=== PATIENT | female | born 1985 | race Caucasian/White ===

== ENCOUNTER → 2016-09-02 | Outpatient (CLI) | payer OTHER ==
[~2016-09-02] MED LIST: CARB15DR EACHEYE; CEFD300C2 PO; CIPR500T87 PO; CYCL1DRO EACHEYE; DOCU250C2 PO; ERGO500017 PO; KETO10TA PO; LACT1CAP24 PO; LEVO1TAB25 PO; LEVO1TAB41 PO; MINE3.5O EACHEYE; ONDA8TAB9 PO; OXYB5TAB7 PO; OXYC-223 PO; OXYC-302 PO; OXYC5TAB3 PO; PHEN-418 PO; POTA10TA31 PO; PRED20TA PO; REFRESH EYE EACHEYE; TAMS-11 PO; oxygen INH
== END | disposition home or self-care (01) ==
LOC: CFH 09:47
PROVIDERS: ATTEND Internal Medicine Critical Care Medicine
DX: J98.4 Other disorders of lung (principal)
CPT/HCPCS: 71250

== ENCOUNTER → 2016-09-08 | Outpatient (CLI) | payer OTHER ==
[~2016-09-08] MED LIST changes: -CEFD300C2 PO; +CEFD300C37 PO
== END | disposition home or self-care (01) ==
LOC: CFH 15:24
PROVIDERS: ATTEND Anesthesiology
DX: N20.0 Calculus of kidney (principal)
CPT/HCPCS: 74000

== ENCOUNTER → 2016-11-08 | Outpatient (CLI) | payer OTHER | END | disposition home or self-care (01) | LOC: CFH 15:11 | PROVIDERS: ATTEND Internal Medicine Critical Care Medicine | DX: J84.9 Interstitial pulmonary disease, unspecified (principal) | CPT/HCPCS: 71020 ==

== ENCOUNTER 2016-12-01 09:17 | Emergency (ER) | payer OTHER ==
[~2016-12-01] VITALS: Ht 165.1 cm; Wt 149.1 kg
[2016-12-01] MEDS ORDERED: MYCO250C PO (09:46)
[2016-12-01] MEDS ORDERED: OXYC-302 PO (09:46)
[2016-12-01] MEDS ORDERED: SODIUM CHLORIDE 0.9% 1,000ML IVBOLUS ONE (10:30)
[2016-12-01] MEDS ORDERED: MORPHINE SULFATE 4 MG/ML, 1ML IVPush PRN (10:30)
[2016-12-01] MEDS ORDERED: ONDANSETRON 2MG/ML, 2ML IVPush ONE (10:30)
[2016-12-01] MEDS ORDERED: SODIUM CHLORIDE FLUSH 10ML SYR IVF ONE (10:30)
[2016-12-01 10:36] LABS: BLOOD UREA NITROGEN 12 mg/dL (7-18)
[2016-12-01] MEDS ORDERED: ONDANSETRON 2MG/ML, 2ML ONE (10:42)
[2016-12-01] MEDS ORDERED: MORPHINE SULFATE 4 MG/ML, 1ML ONE (10:42)
[2016-12-01 11:01] LABS: HCG UR OBC PASS
[2016-12-01] MEDS ORDERED: KETOROLAC 30 MG/1 ML ONE (11:24)
[2016-12-01] MEDS ORDERED: POTASSIUM CHLORIDE 20 MEQ TAB.ER.PRT ONE (11:24)
[2016-12-01] MEDS ORDERED: POTASSIUM CHLORIDE 20 MEQ TAB.ER.PRT PO ONE (11:30)
[2016-12-01] MEDS ORDERED: KETOROLAC 30 MG/1 ML IVPush ONE (11:30)
[2016-12-01 12:09] VITALS: BP 119/56
== END 2016-12-01 12:12 | disposition home or self-care (01) ==
LOC: ED 09:58
DX: S39.012A Strain of muscle, fascia and tendon of lower back, initial encounter (principal); E87.6 Hypokalemia; N20.2 Calculus of kidney with calculus of ureter; G89.29 Other chronic pain; X58.XXXA Exposure to other specified factors, initial encounter; Y93.89 Activity, other specified; Y92.89 Other specified places as the place of occurrence of the external cause; Y99.8 Other external cause status
CPT/HCPCS: 36415; 74176; 80048; 81001; 81025; 82040; 85025; 85651; 87086; 96361; 96374; 96375; 99285; J1885; J2405; J7030

== ENCOUNTER 2016-12-18 11:41 | Inpatient (IN) | payer OTHER ==
[~2016-12-18] VITALS: Ht 165.1 cm; Wt 146.7 kg
[~2016-12-18 11:41] MED LIST changes: +MYCO250C PO
[2016-12-18] MEDS ORDERED: SODIUM CHLORIDE 0.9% 1,000 ML IV ONE (12:35)
[2016-12-18] MEDS ORDERED: POTA20TA91 PO (12:40)
[2016-12-18] MEDS ORDERED: NAPR500T PO (12:40)
[2016-12-18] MEDS ORDERED: HYDROmorphone 1 MG/ML, 1ML ONE ×2 (12:44→14:19)
[2016-12-18] MEDS ORDERED: MAALOX/HYOSCYAMINE/LIDOCAINE 45 ML BTL ONE (12:44)
[2016-12-18] MEDS ORDERED: PROMETHAZINE 25 MG/ML, 1ML ONE (12:44)
[2016-12-18] MEDS ORDERED: SODIUM CHLORIDE 0.9% 1,000ML IVBOLUS ONE (13:00)
[2016-12-18] MEDS ORDERED: MAALOX/HYOSCYAMINE/LIDOCAINE 45 ML BTL PO ONE (13:00)
[2016-12-18] MEDS ORDERED: SODIUM CHLORIDE FLUSH 10ML SYR IVF ONE (13:00)
[2016-12-18] MEDS ORDERED: PROMETHAZINE 25 MG/ML, 1ML IM ONE (13:00)
[2016-12-18] MEDS: HYDROmorphone 1 MG/ML, 1ML IVPush PRN ×2 (13:04→14:26)
[2016-12-18 13:21] LABS: HEMATOCRIT 37.6 % (34.6-47.8); HEMOGLOBIN 12.2 g/dL (11.7-16.4); WHITE BLOOD COUNT 10.3 x10^3/uL (3.4-10)
[2016-12-18 13:25] LABS: PATH.CAST-FLAG NOT PRESENT; SPERM-FLAG NOT PRESENT; SRC-FLAG NOT PRESENT; XTAL-FLAG NOT PRESENT; YLC-FLAG NOT PRESENT
[2016-12-18 13:33] LABS: ASPARTATE AMINO TRANSFERASE 119 U/L (15-37); BLOOD UREA NITROGEN 10 mg/dL (7-18)
[2016-12-18] MEDS ORDERED: CEFTRIAXONE PMX 1GM/50ML 50 ML IV ONE (14:00)
[2016-12-18] MEDS ORDERED: POTASSIUM CHLORIDE 20 MEQ TAB.ER.PRT PO ONE (14:00)
[2016-12-18] MEDS ORDERED: POTASSIUM CHLORIDE 20 MEQ in SODIUM CHLORIDE 0.9% 1,000 ML IV ONE (14:02)
[2016-12-18] MEDS ORDERED: POTASSIUM CHLORIDE 20 MEQ TAB.ER.PRT ONE (14:20)
[2016-12-18] MEDS: NS + 40MEQ KCL 500 ML IV SCH ×2 (14:25→16:54)
[2016-12-18] MEDS ORDERED: ENOXAPARIN 40 MG/0.4 ML SQ SCH (14:30)
[2016-12-18] MEDS ORDERED: POLYETHYLENE GLYCOL 17 GM PACKET PO PRN (14:30)
[2016-12-18] MEDS ORDERED: SODIUM CHLORIDE FLUSH 10ML SYR IVF PRN (14:30)
[2016-12-18] MEDS ORDERED: ACETAMINOPHEN 325 MG TABLET PO PRN (14:30)
[2016-12-18] MEDS ORDERED: DOCUSATE 100 MG CAPSULE PO PRN (14:30)
[2016-12-18] MEDS ORDERED: LABETALOL 5MG/ML, 20ML IVPush PRN (14:30)
[2016-12-18] MEDS ORDERED: HYDROcodone/APAP 5/325 TABLET PO PRN (14:30)
[2016-12-18] MEDS ORDERED: BISACODYL 10 MG SUPP PR PRN (14:30)
[2016-12-18] MEDS ORDERED: CEFTRIAXONE PMX 1GM/50ML 50 ML IV SCH (15:00)
[2016-12-18] MEDS ORDERED: TEMPLATE NON-FORMULARY MED. (Carboxymethylcellulose Sodium (Refresh Tears) 1 DROP) EACHEYE PRN (15:00)
[2016-12-18] MEDS ORDERED: CEFTRIAXONE PMX 1GM/50ML 50 ML ONE (15:13)
[2016-12-18 16:29] VITALS: BP 133/84
[2016-12-18] MEDS: ONDANSETRON 2MG/ML, 2ML IVPush PRN (16:54)
[2016-12-18] MEDS: OXYcodone/APAP 5/325MG TABLET PO SCH ×2 (16:54→21:43)
[2016-12-18] MEDS: NS + 40MEQ KCL 1,000 ML IV SCH (16:55)
[2016-12-18] MEDS: POTASSIUM CHLORIDE 20 MEQ TAB.ER.PRT PO SCH (17:31)
[2016-12-18] MEDS: morphine SULFATE 10 MG/ML, 1ML IVPush PRN ×2 (19:47→23:17)
[2016-12-18 20:10] VITALS: BP 119/85
[2016-12-18] MEDS: TEMPLATE NON-FORMULARY MED. (Cyclosporine (Restasis) 1 DROP) EACHEYE SCH (21:00)
[2016-12-19] MEDS: NS + 40MEQ KCL 500 ML IV SCH ×2 (01:00→04:54)
[2016-12-19 01:17] VITALS: BP 109/75
[2016-12-19] MEDS: ONDANSETRON 2MG/ML, 2ML IVPush PRN (02:19)
[2016-12-19] MEDS: morphine SULFATE 10 MG/ML, 1ML IVPush PRN ×3 (02:19→12:08)
[2016-12-19] MEDS: NS + 40MEQ KCL 1,000 ML IV SCH (04:08)
[2016-12-19] MEDS: OXYcodone/APAP 5/325MG TABLET PO SCH ×2 (05:33→11:03)
[2016-12-19 05:38] LABS: HEMATOCRIT 34.7 % (34.6-47.8); WHITE BLOOD COUNT 6.9 x10^3/uL (3.4-10)
[2016-12-19 06:01] LABS: BLOOD UREA NITROGEN 9 mg/dL (7-18)
[2016-12-19 06:07] LABS: ASPARTATE AMINO TRANSFERASE 94 U/L (15-37)
[2016-12-19 08:23] VITALS: BP 116/77
[2016-12-19] MEDS: POTASSIUM CHLORIDE 20 MEQ TAB.ER.PRT PO SCH (08:34)
[2016-12-19] MEDS: TEMPLATE NON-FORMULARY MED. (Cyclosporine (Restasis) 1 DROP) EACHEYE SCH (08:38)
[2016-12-19] MEDS ORDERED: LEVONORGESTREL ETH ESTRADIOL PO SCH (09:00)
[2016-12-19 12:36] VITALS: BP 108/78
[2016-12-19] MEDS ORDERED: CEFD300C37 PO (13:52)
[2016-12-19] MEDS ORDERED: ONDA4TAB10 PO (13:52)
[2016-12-19] MEDS ORDERED: POTA20PA8 PO (13:52)
== END 2016-12-19 13:15 | disposition home or self-care (01) | DRG 683 ==
LOC: ED 12:46 → EDIP 14:02 → 4WST 16:01
PROVIDERS: ADMIT Internal Medicine; ATTEND Internal Medicine
DX: N17.9 Acute kidney failure, unspecified (principal); E87.2 Acidosis; E44.0 Moderate protein-calorie malnutrition; Z68.43 Body mass index [BMI] 50.0-59.9, adult; J84.9 Interstitial pulmonary disease, unspecified; N39.0 Urinary tract infection, site not specified; E87.6 Hypokalemia; M35.00 Sjogren syndrome, unspecified; E86.0 Dehydration; E66.9 Obesity, unspecified; F32.9 Major depressive disorder, single episode, unspecified; N20.0 Calculus of kidney; D72.829 Elevated white blood cell count, unspecified; R09.02 Hypoxemia; Z82.49 Family history of ischemic heart disease and other diseases of the circulatory system; Z83.3 Family history of diabetes mellitus; Z87.442 Personal history of urinary calculi
CPT/HCPCS: 36415; 74176; 76700; 80053; 81001; 83690; 83735; 84132; 84703; 85025; 87086; 93005; 96365; 96372; 96375; 96376; J0696; J1170; J1650; J2405; J2550; J7517; J2270; J3480; J7030

== ENCOUNTER → 2017-06-13 | Outpatient (CLI) | payer OTHER ==
[~2017-06-13] MED LIST changes: -DOCU250C2 PO; +DOCU250C9 PO; +NAPR-856 PO; +ONDA4TAB10 PO; -OXYC-223 PO; +OXYC-306 PO; +POTA20PA25 PO; +POTA20TA91 PO
== END | disposition home or self-care (01) ==
LOC: CFH 15:50
PROVIDERS: ATTEND Urology
DX: N20.0 Calculus of kidney (principal)
CPT/HCPCS: 74018

== ENCOUNTER 2017-06-14 05:49 | Day surgery (SDC) | payer OTHER ==
[~2017-06-14] VITALS: Ht 165.1 cm; Wt 148.0 kg
[2017-06-14 06:24] VITALS: BP 124/79
[2017-06-14] MEDS ORDERED: SODIUM CHLORIDE 0.9% 1,000 ML IV SCH (06:36)
[2017-06-14] MEDS ORDERED: LIDOCAINE 1%, 2ML ONE (06:38)
[2017-06-14 07:26] LABS: BASOPHILS # (AUTO) 0.01 x10^3/uL (0-0.1); BASOPHILS % (AUTO) 0 % (0-1); EOSINOPHILS # (AUTO) 0.04 x10^3/uL (0-0.4); EOSINOPHILS % (AUTO) 1 % (1-7); LYMPHOCYTES # (AUTO) 1.21 x10^3/uL (1-3.4); LYMPHOCYTES % (AUTO) 20 % (22-44); MD NO; MEAN CORPUSCULAR HEMOGLOBIN 25.4 pg (27.0-34.8); MEAN CORPUSCULAR HGB CONC 31.9 g/dL (32.4-35.8); MEAN CORPUSCULAR VOLUME 79.8 fL (80-100); MEAN PLATELET VOLUME 7.9 fL (7.4-10.4); MONOCYTES # (AUTO) 0.43 x10^3/uL (0.2-0.8); MONOCYTES % (AUTO) 7 % (2-9); NEUTROPHILS # (AUTO) 4.49 x10^3/uL (1.8-6.8); NEUTROPHILS % (AUTO) 73 % (42-75); PLATELET COUNT 371 x10^3/uL (130-400); RED BLOOD COUNT 4.53 x10^6/uL (3.82-5.3); RED CELL DISTRIBUTION WIDTH 14.8 % (9.6-15.2)
[2017-06-14] MEDS ORDERED: FENTANYL PF 100 MCG/2ML ONE ×2 (07:45)
[2017-06-14] MEDS ORDERED: FLUMAZENIL 0.1 MG/1 ML, 5ML ONE (07:45)
[2017-06-14] MEDS ORDERED: MIDAZOLAM 1 MG/ML, 2ML ONE ×2 (07:45→08:18)
[2017-06-14] MEDS ORDERED: NALOXONE 1 MG/ML, 2ML ONE (07:45)
[2017-06-14] MEDS ORDERED: LIDOCAINE 1%, 20ML ONE (08:30)
== END 2017-06-14 10:20 ==
LOC: RAD 05:49
PROVIDERS: ATTEND Internal Medicine Hematology & Oncology
DX: C90.00 Multiple myeloma not having achieved remission (principal); M35.00 Sjogren syndrome, unspecified; E87.6 Hypokalemia
CPT/HCPCS: 36415; 38222; 77012; 85025; 85060; 85097; 88237; 88264; 88280; 88305; 88311; 88313; 99156; 99157; J2250; J3010; J3490; J7030; J2310

== ENCOUNTER → 2017-08-01 | Outpatient (CLI) | payer OTHER ==
[~2017-08-01] MED LIST changes: +CHOL20002 PO; +LIFI1DRO EACHEYE; +MINE3.5O2 EACHEYE; +MYCO500T PO; +PANT40TA3 PO; +POTA10TA17 PO; +PROM12.55 PO
[2017-08-01 16:03] LABS: BASOPHILS # (AUTO) 0.04 x10^3/uL (0-0.1); BASOPHILS % (AUTO) 0 % (0-1); EOSINOPHILS # (AUTO) 0.06 x10^3/uL (0-0.4); EOSINOPHILS % (AUTO) 1 % (1-7); LYMPHOCYTES # (AUTO) 2.26 x10^3/uL (1-3.4); LYMPHOCYTES % (AUTO) 21 % (22-44); MD NO; MEAN CORPUSCULAR HEMOGLOBIN 25.2 pg (27.0-34.8); MEAN CORPUSCULAR HGB CONC 32.1 g/dL (32.4-35.8); MEAN CORPUSCULAR VOLUME 78.6 fL (80-100); MEAN PLATELET VOLUME 7.7 fL (7.4-10.4); MONOCYTES # (AUTO) 0.56 x10^3/uL (0.2-0.8); MONOCYTES % (AUTO) 5 % (2-9); NEUTROPHILS # (AUTO) 7.86 x10^3/uL (1.8-6.8); NEUTROPHILS % (AUTO) 73 % (42-75); PLATELET COUNT 430 x10^3/uL (130-400); RED CELL DISTRIBUTION WIDTH 15.4 % (9.6-15.2)
[2017-08-01 16:03] LABS: MICROSCOPIC INDICATED
[2017-08-01 16:14] LABS: ANION GAP 7 mmol/L (5-15); CALCIUM 8.1 mg/dL (8.5-10.1); CHLORIDE 113 mmol/L (98-107); CREATININE 1.07 mg/dL (0.55-1.02)
== END | disposition home or self-care (01) ==
LOC: STAR 15:07
PROVIDERS: ATTEND Urology
DX: Z01.818 Encounter for other preprocedural examination (principal); N20.0 Calculus of kidney
CPT/HCPCS: 36415; 71046; 80048; 81001; 85025; 87086; 93005

== ENCOUNTER 2017-08-11 05:29 | Day surgery (SDC) | payer OTHER ==
[~2017-08-11] VITALS: Ht 165.1 cm; Wt 152.6 kg
[2017-08-11 06:17] VITALS: BP 137/80
[2017-08-11 06:36] LABS: HCG UR SG 1.011 (1.003-1.030)
[2017-08-11] MEDS: LACTATED RINGERS 1,000 ML IV SCH ×2 (06:36→06:50)
[2017-08-11] MEDS ORDERED: GABAPENTIN 300 MG CAPSULE PO ONE (07:00)
[2017-08-11] MEDS ORDERED: ONDANSETRON ODT 8 MG PO ONE (07:00)
[2017-08-11] MEDS ORDERED: OxyconTIN ER 20 MG TAB.ER PO ONE (07:00)
[2017-08-11] MEDS ORDERED: ACETAMINOPHEN 500 MG TABLET PO ONE ×2 (07:00→07:30)
[2017-08-11] MEDS ORDERED: MIDAZOLAM 1 MG/ML, 2ML ONE (07:22)
[2017-08-11] MEDS ORDERED: FENTANYL PF 100 MCG/2ML ONE (07:22)
[2017-08-11] MEDS ORDERED: SCOPOLAMINE PATCH, 1.5MG PATCH.TD72 TD ONE (07:30)
[2017-08-11] MEDS ORDERED: ROCURONIUM 10 MG/ML,10ML ONE (07:37)
[2017-08-11] MEDS ORDERED: SUCCINYLCHOLINE 20 MG/ML, 10ML ONE (07:37)
[2017-08-11] MEDS ORDERED: PROPOFOL 10 MG/ML, 20ML ONE (07:37)
[2017-08-11] MEDS ORDERED: ONDANSETRON 2MG/ML, 2ML ONE (07:37)
[2017-08-11] MEDS ORDERED: DEXAMETHASONE 4 MG/ML, 1ML ONE (07:37)
[2017-08-11] MEDS ORDERED: GLYCOPYRROLATE 0.2MG/1ML, 5ML ONE (07:37)
[2017-08-11] MEDS ORDERED: NEOSTIGMINE 1 MG/ML, 10ML ONE (07:37)
[2017-08-11] MEDS ORDERED: hydrALAzine 20 MG/ML, 1ML IV PRN (08:00)
[2017-08-11] MEDS ORDERED: ONDANSETRON 2MG/ML, 2ML IVPush PRN (08:00)
[2017-08-11] MEDS ORDERED: LABETALOL 5MG/ML, 20ML IV PRN (08:00)
[2017-08-11] MEDS ORDERED: FENTANYL PF 100 MCG/2ML IV PRN (08:00)
[2017-08-11] MEDS ORDERED: MIDAZOLAM 1 MG/ML, 2ML IV PRN (08:00)
[2017-08-11] MEDS ORDERED: MEPERIDINE/PF 25MG/0.5ML IVPush PRN (08:00)
[2017-08-11] MEDS ORDERED: morphine SULFATE 10 MG/ML, 1ML IV PRN (08:00)
[2017-08-11] MEDS ORDERED: OXYcodone 5 MG/5 ML ORAL.SOL UDC PO PRN (08:00)
[2017-08-11] MEDS ORDERED: METOCLOPRAMIDE 5 MG/ML, 2ML IV PRN (08:00)
[2017-08-11] MEDS ORDERED: PROMETHAZINE 12.5 MG SUPP PR PRN (08:00)
[2017-08-11] MEDS ORDERED: ALBUTEROL SULFATE 2.5 MG/3 ML NPPB PRN (08:00)
[2017-08-11] MEDS ORDERED: OPIUM/BELLADONNA SUPP.RECT 16.2-60 MG ONE (08:07)
[2017-08-11] MEDS ORDERED: OPIUM/BELLADONNA SUPP.RECT 16.2-60 MG PR ONE (08:18)
[2017-08-11] MEDS ORDERED: OMNIPAQUE 350 MG/ML, 50 ML BOTTLE IV ONE (09:15)
[2017-08-11] MEDS ORDERED: ONDANSETRON 2MG/ML, 2ML IV PRN (09:30)
[2017-08-11] MEDS ORDERED: OXYcodone/APAP 5/325MG TABLET PO PRN (09:30)
[2017-08-11] MEDS ORDERED: DIPHENHYDRAMINE 50 MG/ML, 1ML IV PRN (09:30)
[2017-08-11] MEDS ORDERED: HYDROmorphone 2 MG/ML, 1ML ONE (09:45)
[2017-08-11] MEDS: HYDROmorphone 2 MG/ML, 1ML IV PRN ×3 (09:47→10:26)
[2017-08-11] MEDS ORDERED: OXYcodone 5 MG/5 ML ORAL.SOL UDC ONE (09:51)
[2017-08-11] MEDS ORDERED: PHENAZOPYRIDINE 200 MG TABLET ONE (10:10)
[2017-08-11] MEDS ORDERED: PHENAZOPYRIDINE 200 MG TABLET PO ONE (10:30)
[2017-08-11] MEDS ORDERED: OXYBUTYNIN CHLORIDE 5 MG TABLET PO PRN (12:00)
[2017-08-11] MEDS ORDERED: OXYcodone/APAP 7.5/325MG TABLET ONE (13:37)
[2017-08-11] MEDS ORDERED: OXYcodone/APAP 7.5/325MG TABLET PO PRN (14:00)
== END 2017-08-11 14:15 | disposition home or self-care (01) ==
LOC: OUT 05:29
PROVIDERS: ATTEND Urology
DX: N20.0 Calculus of kidney (principal); E43 Unspecified severe protein-calorie malnutrition; Z68.39 Body mass index [BMI] 39.0-39.9, adult; M35.02 Sjogren syndrome with lung involvement; J84.9 Interstitial pulmonary disease, unspecified
CPT/HCPCS: 52356; 74420; 81025; 88300; C1726; C1758; C2617; J0330; J1100; J1170; J2250; J2405; J2704; J2710; J3010; J7120; Q9967; 82360; J3490

== ENCOUNTER 2017-08-17 12:36 | Inpatient (IN) | payer OTHER ==
[~2017-08-17] VITALS: Ht 165.1 cm; Wt 147.4 kg
[2017-08-17] MEDS ORDERED: MORPHINE SULFATE 4 MG/ML, 1ML ONE ×2 (13:23→15:06)
[2017-08-17] MEDS ORDERED: ONDANSETRON ODT 4 MG PO ONE (13:30)
[2017-08-17] MEDS ORDERED: ONDANSETRON 2MG/ML, 2ML IVPush ONE (13:30)
[2017-08-17 13:35] LABS: BASOPHILS # (AUTO) 0.03 x10^3/uL (0-0.1); BASOPHILS % (AUTO) 0 % (0-1); EOSINOPHILS # (AUTO) 0.07 x10^3/uL (0-0.4); EOSINOPHILS % (AUTO) 1 % (1-7); LYMPHOCYTES # (AUTO) 1.31 x10^3/uL (1-3.4); LYMPHOCYTES % (AUTO) 11 % (22-44); MD NO; MEAN CORPUSCULAR HEMOGLOBIN 25.6 pg (27.0-34.8); MEAN CORPUSCULAR VOLUME 79.8 fL (80-100); MEAN PLATELET VOLUME 7.9 fL (7.4-10.4); MONOCYTES # (AUTO) 0.67 x10^3/uL (0.2-0.8); MONOCYTES % (AUTO) 6 % (2-9); NEUTROPHILS % (AUTO) 82 % (42-75); PLATELET COUNT 464 x10^3/uL (130-400); RED BLOOD COUNT 4.95 x10^6/uL (3.82-5.3); RED CELL DISTRIBUTION WIDTH 15.3 % (9.6-15.2)
[2017-08-17] MEDS ORDERED: ONDANSETRON ODT 4 MG ONE (13:38)
[2017-08-17 13:48] LABS: ALANINE AMINOTRANSFERASE 25 U/L (12-78); ALBUMIN 3.4 g/dL (3.4-5.0); ANION GAP 13 mmol/L (5-15); CALCIUM 8.8 mg/dL (8.5-10.1); CHLORIDE 112 mmol/L (98-107); CREATININE 1.48 mg/dL (0.55-1.02)
[2017-08-17] MEDS: MORPHINE SULFATE 4 MG/ML, 1ML IVPush PRN ×4 (13:52→21:13)
[2017-08-17 13:53] LABS: ALKALINE PHOSPHATASE 98 U/L (45-117); BILIRUBIN,TOTAL 0.5 mg/dL (0.2-1.0); TOTAL PROTEIN 9.7 g/dL (6.4-8.2)
[2017-08-17 14:16] LABS: CULTURE INDICATED? YES; MICROSCOPIC AUTO
[2017-08-17] MEDS ORDERED: CEFTRIAXONE PMX 1GM/50ML 50 ML IV ONE (16:00)
[2017-08-17] MEDS ORDERED: CEFTRIAXONE PMX 1GM/50ML 50 ML ONE (16:03)
[2017-08-17] MEDS ORDERED: LABETALOL 5MG/ML, 20ML IVPush PRN (17:30)
[2017-08-17] MEDS ORDERED: ONDANSETRON ODT 4 MG PO PRN (17:30)
[2017-08-17] MEDS ORDERED: ONDANSETRON 2MG/ML, 2ML IVPush PRN (17:30)
[2017-08-17] MEDS ORDERED: ARTIFICIAL TEARS 15 DROP/ML BOTTLE EACHEYE PRN (17:30)
[2017-08-17 17:37] VITALS: BP 118/72
[2017-08-17 17:37] LABS: FREE T4 (FREE THYROXINE) 1.1 ng/dL (0.76-1.46)
[2017-08-17] MEDS: ENOXAPARIN 40 MG/0.4 ML SQ SCH (18:07)
[2017-08-17 18:43] VITALS: BP 133/82
[2017-08-17] MEDS: TEMPLATE NON-FORMULARY MED. (Cyclosporine (Restasis) 1 DROP) EACHEYE SCH (21:00)
[2017-08-17] MEDS: SODIUM CHLORIDE 0.9% 1,000 ML IV SCH (21:13)
[2017-08-17] MEDS ORDERED: POTASSIUM CITRATE 10 MEQ PO SCH (21:30)
[2017-08-17] MEDS ORDERED: POTASSIUM CITRATE 10 MEQ HOMEMEDPO SCH (21:39)
[2017-08-17] MEDS: OXYcodone IR 5MG TABLET PO PRN (22:19)
[2017-08-18 00:09] LABS: CREATININE,URINE RANDOM 88.7 mg/dL
[2017-08-18] MEDS: MORPHINE SULFATE 4 MG/ML, 1ML IVPush PRN ×6 (00:20→21:42)
[2017-08-18 02:21] VITALS: BP 109/74
[2017-08-18] MEDS: OXYcodone IR 5MG TABLET PO PRN ×4 (02:27→20:44)
[2017-08-18] MEDS: SODIUM CHLORIDE 0.9% 1,000 ML IV SCH (05:37)
[2017-08-18 05:44] LABS: BASOPHILS # (AUTO) 0.03 x10^3/uL (0-0.1); BASOPHILS % (AUTO) 0 % (0-1); EOSINOPHILS % (AUTO) 1 % (1-7); LYMPHOCYTES % (AUTO) 18 % (22-44); MD NO; MEAN CORPUSCULAR HEMOGLOBIN 24.9 pg (27.0-34.8); MEAN CORPUSCULAR HGB CONC 31.7 g/dL (32.4-35.8); MEAN CORPUSCULAR VOLUME 78.8 fL (80-100); MEAN PLATELET VOLUME 7.9 fL (7.4-10.4); MONOCYTES # (AUTO) 0.57 x10^3/uL (0.2-0.8); MONOCYTES % (AUTO) 7 % (2-9); NEUTROPHILS # (AUTO) 6.38 x10^3/uL (1.8-6.8); NEUTROPHILS % (AUTO) 74 % (42-75); PLATELET COUNT 374 x10^3/uL (130-400); RED BLOOD COUNT 4.18 x10^6/uL (3.82-5.3); RED CELL DISTRIBUTION WIDTH 15.4 % (9.6-15.2)
[2017-08-18 05:54] LABS: ALANINE AMINOTRANSFERASE 25 U/L (12-78); ALBUMIN 2.7 g/dL (3.4-5.0); ANION GAP 12 mmol/L (5-15); CALCIUM 7.8 mg/dL (8.5-10.1); CHLORIDE 114 mmol/L (98-107); CREATININE 1.21 mg/dL (0.55-1.02)
[2017-08-18 06:05] LABS: ALKALINE PHOSPHATASE 76 U/L (45-117); BILIRUBIN,TOTAL 0.4 mg/dL (0.2-1.0); TOTAL PROTEIN 7.8 g/dL (6.4-8.2)
[2017-08-18 06:48] VITALS: BP 114/74
[2017-08-18] MEDS: TEMPLATE NON-FORMULARY MED. (Cyclosporine (Restasis) 1 DROP) EACHEYE SCH ×2 (08:00→21:41)
[2017-08-18] MEDS ORDERED: POTASSIUM CHLORIDE 20 MEQ TAB.ER.PRT PO ONE ×2 (08:00→11:00)
[2017-08-18] MEDS ORDERED: IRON SUCROSE COMPLEX 100MG/5ML IV SCH (08:00)
[2017-08-18] MEDS ORDERED: MIDAZOLAM 1 MG/ML, 2ML ONE (08:09)
[2017-08-18] MEDS ORDERED: FENTANYL PF 250 MCG/5ML ONE (08:09)
[2017-08-18] MEDS ORDERED: PROPOFOL 10 MG/ML, 20ML ONE (08:10)
[2017-08-18] MEDS ORDERED: DEXAMETHASONE 4 MG/ML, 1ML ONE ×2 (08:11)
[2017-08-18] MEDS ORDERED: ONDANSETRON 2MG/ML, 2ML ONE (08:11)
[2017-08-18] MEDS ORDERED: ROCURONIUM 10MG/ML,5ML ONE (08:12)
[2017-08-18] MEDS ORDERED: SUCCINYLCHOLINE 20 MG/ML, 10ML ONE (08:12)
[2017-08-18] MEDS ORDERED: PROMETHAZINE 12.5 MG SUPP PR PRN (08:30)
[2017-08-18] MEDS ORDERED: ACETAMINOPHEN 325 MG TABLET PO PRN (08:30)
[2017-08-18] MEDS ORDERED: hydrALAzine 20 MG/ML, 1ML IV PRN (08:30)
[2017-08-18] MEDS ORDERED: ONDANSETRON 2MG/ML, 2ML IVPush PRN (08:30)
[2017-08-18] MEDS ORDERED: FENTANYL PF 100 MCG/2ML IV PRN (08:30)
[2017-08-18] MEDS ORDERED: MEPERIDINE/PF 25MG/0.5ML IVPush PRN (08:30)
[2017-08-18] MEDS ORDERED: LABETALOL 5MG/ML, 20ML IV PRN (08:30)
[2017-08-18] MEDS ORDERED: HYDROmorphone 1 MG/ML, 1ML IV PRN (08:30)
[2017-08-18] MEDS ORDERED: OXYcodone 5 MG/5 ML ORAL.SOL UDC PO PRN (08:30)
[2017-08-18] MEDS ORDERED: CEFTRIAXONE 1,000 MG ONE (08:30)
[2017-08-18] MEDS ORDERED: SCOPOLAMINE PATCH, 1.5MG PATCH.TD72 TD ONE ×2 (08:34)
[2017-08-18] MEDS ORDERED: OMNIPAQUE 350 MG/ML, 50 ML BOTTLE IV ONE (09:17)
[2017-08-18] MEDS ORDERED: MEPERIDINE/PF 25MG/0.5ML ONE (09:32)
[2017-08-18] MEDS ORDERED: ACETAMINOPHEN 650 MG/20.3 ML UDC ONE (09:32)
[2017-08-18] MEDS ORDERED: OXYcodone 5 MG/5 ML ORAL.SOL UDC ONE (09:32)
[2017-08-18] MEDS: PROMETHAZINE 25 MG/ML, 1ML IV PRN ×2 (09:40→10:00)
[2017-08-18] MEDS ORDERED: PROMETHAZINE 25 MG/ML, 1ML ONE (09:40)
[2017-08-18] MEDS: morphine SULFATE 10 MG/ML, 1ML IV PRN ×2 (09:50→10:00)
[2017-08-18] MEDS ORDERED: MORPHINE SULFATE 4 MG/ML, 1ML ONE (09:52)
[2017-08-18] MEDS: POTASSIUM CHLORIDE 10 MEQ TABLET.ER PO SCH ×3 (11:00→20:48)
[2017-08-18] MEDS: LEVONORGESTREL ETH ESTRADIOL HOMEMEDPO SCH (12:04)
[2017-08-18] MEDS: D5%-0.45% NACL 1,000 ML IV SCH ×2 (12:05→20:45)
[2017-08-18] MEDS: CHOLECALCIFEROL 1,000 UNIT TABLET PO SCH (12:06)
[2017-08-18] MEDS: PANTOPROZOLE 40MG TABLET PO SCH (12:06)
[2017-08-18 15:02] VITALS: BP 123/76
[2017-08-18] MEDS ORDERED: CEFTRIAXONE PMX 1GM/50ML 50 ML IV ONE (16:00)
[2017-08-18] MEDS ORDERED: CEFTRIAXONE PMX 2GM/50ML 50 ML IV SCH (16:00)
[2017-08-18] MEDS ORDERED: CEFTRIAXONE 2 GM in DEXTROSE 5% 50 ML IV SCH (16:54)
[2017-08-18] MEDS ORDERED: IRON SUCROSE COMPLEX 100MG/5ML IV ONE (17:00)
[2017-08-18] MEDS: ENOXAPARIN 40 MG/0.4 ML SQ SCH (17:39)
[2017-08-18 18:30] VITALS: BP 117/75
[2017-08-19 00:43] VITALS: BP 127/75
[2017-08-19] MEDS: OXYcodone IR 5MG TABLET PO PRN ×4 (00:53→13:30)
[2017-08-19] MEDS: MORPHINE SULFATE 4 MG/ML, 1ML IVPush PRN ×3 (01:40→10:16)
[2017-08-19 04:12] VITALS: BP 114/71
[2017-08-19] MEDS: D5%-0.45% NACL 1,000 ML IV SCH ×2 (04:46→12:00)
[2017-08-19] MEDS: POTASSIUM CHLORIDE 10 MEQ TABLET.ER PO SCH ×2 (05:55→10:16)
[2017-08-19] MEDS ORDERED: IRON SUCROSE COMPLEX 100MG/5ML IV SCH (06:30)
[2017-08-19 07:14] LABS: BASOPHILS # (AUTO) 0.02 x10^3/uL (0-0.1); BASOPHILS % (AUTO) 0 % (0-1); EOSINOPHILS % (AUTO) 0 % (1-7); LYMPHOCYTES # (AUTO) 1.07 x10^3/uL (1-3.4); LYMPHOCYTES % (AUTO) 12 % (22-44); MD NO; MEAN CORPUSCULAR HEMOGLOBIN 25.5 pg (27.0-34.8); MEAN CORPUSCULAR HGB CONC 32.1 g/dL (32.4-35.8); MEAN CORPUSCULAR VOLUME 79.6 fL (80-100); MEAN PLATELET VOLUME 8.1 fL (7.4-10.4); MONOCYTES # (AUTO) 0.41 x10^3/uL (0.2-0.8); MONOCYTES % (AUTO) 5 % (2-9); NEUTROPHILS # (AUTO) 7.31 x10^3/uL (1.8-6.8); NEUTROPHILS % (AUTO) 83 % (42-75); PLATELET COUNT 402 x10^3/uL (130-400); RED BLOOD COUNT 4.17 x10^6/uL (3.82-5.3); RED CELL DISTRIBUTION WIDTH 15.9 % (9.6-15.2)
[2017-08-19 07:24] LABS: ALBUMIN 2.9 g/dL (3.4-5.0); ANION GAP 9 mmol/L (5-15); CALCIUM 8.4 mg/dL (8.5-10.1); CHLORIDE 113 mmol/L (98-107); CREATININE 1.24 mg/dL (0.55-1.02)
[2017-08-19 08:08] VITALS: BP 117/76
[2017-08-19] MEDS: TEMPLATE NON-FORMULARY MED. (Cyclosporine (Restasis) 1 DROP) EACHEYE SCH (08:58)
[2017-08-19] MEDS: LEVONORGESTREL ETH ESTRADIOL HOMEMEDPO SCH (08:58)
[2017-08-19] MEDS ORDERED: POTASSIUM CHLORIDE 20 MEQ TAB.ER.PRT PO ONE (09:30)
[2017-08-19] MEDS: CHOLECALCIFEROL 1,000 UNIT TABLET PO SCH (09:54)
[2017-08-19] MEDS: PANTOPROZOLE 40MG TABLET PO SCH (09:54)
[2017-08-19 13:21] VITALS: BP 123/78
[2017-08-19] MEDS ORDERED: CEFD300C37 PO (14:01)
[2017-08-19 14:40] VITALS: BP 140/84
== END 2017-08-19 15:30 | disposition home or self-care (01) | DRG 660 ==
LOC: ED 15:25 → EDIP 15:51 → OBSVTOIN 17:10 → 4NOR 17:28 → DCLOUNGE 08-19 15:10
PROVIDERS: ADMIT Family Medicine; ATTEND Family Medicine
PROC: 0T748DZ Dilation of Left Kidney Pelvis with Intraluminal Device, Via Natural or Artificial Opening Endoscopic (ICD-10-PCS; principal; 2017-08-18 08:00)
DX: N13.6 Pyonephrosis (principal); J84.9 Interstitial pulmonary disease, unspecified; N17.9 Acute kidney failure, unspecified; E66.01 Morbid (severe) obesity due to excess calories; Z68.43 Body mass index [BMI] 50.0-59.9, adult; D89.9 Disorder involving the immune mechanism, unspecified; M35.00 Sjogren syndrome, unspecified; N20.1 Calculus of ureter; D50.9 Iron deficiency anemia, unspecified; E11.9 Type 2 diabetes mellitus without complications; E87.6 Hypokalemia; I10 Essential (primary) hypertension; N25.89 Other disorders resulting from impaired renal tubular function; R09.02 Hypoxemia; Z82.49 Family history of ischemic heart disease and other diseases of the circulatory system; Z83.3 Family history of diabetes mellitus; Z87.442 Personal history of urinary calculi
CPT/HCPCS: 36415; 74176; 74420; 76770; 80048; 80053; 81001; 82040; 82570; 82728; 83540; 83550; 83605; 83735; 84100; 84300; 84439; 84443; 84703; 85025; 87040; 87086; 96374; 96375; 96376; J0696; J1100; J1650; J1756; J2250; J2405; J2550; J2704; J3010; Q0162; Q9967; C1758; C2617; G0378; J0330; J2270; J7030; J7517

== ENCOUNTER 2017-08-24 12:53 | Emergency (ER) | payer OTHER ==
[~2017-08-24] VITALS: Ht 165.1 cm; Wt 149.0 kg
[2017-08-24] MEDS ORDERED: ONDANSETRON ODT 4 MG PO ONE (13:30)
[2017-08-24] MEDS ORDERED: SODIUM CHLORIDE FLUSH 10ML SYR IVF ONE (13:30)
[2017-08-24 13:38] LABS: BASOPHILS # (AUTO) 0.05 x10^3/uL (0-0.1); BASOPHILS % (AUTO) 1 % (0-1); EOSINOPHILS # (AUTO) 0.33 x10^3/uL (0-0.4); EOSINOPHILS % (AUTO) 3 % (1-7); LYMPHOCYTES % (AUTO) 14 % (22-44); MD NO; MEAN CORPUSCULAR HEMOGLOBIN 25.3 pg (27.0-34.8); MEAN CORPUSCULAR VOLUME 79.1 fL (80-100); MEAN PLATELET VOLUME 7.7 fL (7.4-10.4); MONOCYTES # (AUTO) 0.72 x10^3/uL (0.2-0.8); MONOCYTES % (AUTO) 7 % (2-9); NEUTROPHILS # (AUTO) 7.61 x10^3/uL (1.8-6.8); NEUTROPHILS % (AUTO) 75 % (42-75); PLATELET COUNT 415 x10^3/uL (130-400); RED BLOOD COUNT 4.66 x10^6/uL (3.82-5.3); RED CELL DISTRIBUTION WIDTH 16.2 % (9.6-15.2)
[2017-08-24 13:49] LABS: ALBUMIN 3.1 g/dL (3.4-5.0); ANION GAP 11 mmol/L (5-15); CALCIUM 8.6 mg/dL (8.5-10.1); CHLORIDE 116 mmol/L (98-107); CREATININE 1.19 mg/dL (0.55-1.02)
[2017-08-24] MEDS ORDERED: ONDANSETRON ODT 4 MG ONE (13:57)
[2017-08-24] MEDS ORDERED: MORPHINE SULFATE 4 MG/ML, 1ML ONE ×2 (13:58→17:37)
[2017-08-24] MEDS: MORPHINE SULFATE 4 MG/ML, 1ML IVPush PRN ×2 (14:09→17:41)
[2017-08-24 14:29] LABS: CULTURE INDICATED? YES; MICROSCOPIC INDICATED
[2017-08-24] MEDS ORDERED: SODIUM CHLORIDE 0.9% 1,000ML IVBOLUS ONE (15:00)
[2017-08-24 17:27] LABS: ALBUMIN 2.9 g/dL (3.4-5.0); ANION GAP 7 mmol/L (5-15); CALCIUM 7.7 mg/dL (8.5-10.1); CHLORIDE 118 mmol/L (98-107)
[2017-08-24 17:29] LABS: CREATININE 0.99 mg/dL (0.55-1.02)
[2017-08-24 18:23] VITALS: BP 129/69
== END 2017-08-24 18:26 | disposition home or self-care (01) ==
LOC: ED 14:49
DX: N23 Unspecified renal colic (principal); F32.9 Major depressive disorder, single episode, unspecified
CPT/HCPCS: 36415; 74018; 76770; 80048; 81001; 82040; 83605; 85025; 87086; 96361; 96374; 96376; 99285; J7030; Q0162

== ENCOUNTER → 2017-09-20 | Outpatient (CLI) | payer OTHER ==
[~2017-09-20] MED LIST changes: -CARB15DR EACHEYE; +CARB15DR3 EACHEYE
== END | disposition home or self-care (01) ==
LOC: CVU 12:58
PROVIDERS: ATTEND Internal Medicine Critical Care Medicine
DX: J84.9 Interstitial pulmonary disease, unspecified (principal); E66.01 Morbid (severe) obesity due to excess calories
CPT/HCPCS: 93306

== ENCOUNTER 2017-10-12 17:03 | Inpatient (IN) | payer OTHER ==
[~2017-10-12] VITALS: Ht 165.1 cm; Wt 152.9 kg
[2017-10-12 17:39] LABS: MICROSCOPIC AUTO
[2017-10-12 17:41] LABS: CULTURE INDICATED? NO
[2017-10-12 17:53] LABS: BASOPHILS # (AUTO) 0.04 x10^3/uL (0-0.1); BASOPHILS % (AUTO) 0 % (0-1); EOSINOPHILS # (AUTO) 0.08 x10^3/uL (0-0.4); EOSINOPHILS % (AUTO) 1 % (1-7); LYMPHOCYTES # (AUTO) 1.65 x10^3/uL (1-3.4); LYMPHOCYTES % (AUTO) 13 % (22-44); MD NO; MEAN CORPUSCULAR HEMOGLOBIN 26.2 pg (27.0-34.8); MEAN CORPUSCULAR HGB CONC 32.6 g/dL (32.4-35.8); MEAN CORPUSCULAR VOLUME 80.4 fL (80-100); MEAN PLATELET VOLUME 8.2 fL (7.4-10.4); MONOCYTES # (AUTO) 0.48 x10^3/uL (0.2-0.8); MONOCYTES % (AUTO) 4 % (2-9); NEUTROPHILS # (AUTO) 10.44 x10^3/uL (1.8-6.8); NEUTROPHILS % (AUTO) 82 % (42-75); PLATELET COUNT 363 x10^3/uL (130-400); RED BLOOD COUNT 4.45 x10^6/uL (3.82-5.3); RED CELL DISTRIBUTION WIDTH 19.1 % (9.6-15.2)
[2017-10-12 17:59] LABS: ALANINE AMINOTRANSFERASE 38 U/L (12-78); ALBUMIN 3.4 g/dL (3.4-5.0); ANION GAP 11 mmol/L (5-15); CALCIUM 8.3 mg/dL (8.5-10.1); CHLORIDE 114 mmol/L (98-107); CREATININE 1.15 mg/dL (0.55-1.02)
[2017-10-12 18:03] LABS: ALKALINE PHOSPHATASE 92 U/L (45-117); BILIRUBIN,TOTAL 0.2 mg/dL (0.2-1.0); TOTAL PROTEIN 8.6 g/dL (6.4-8.2)
[2017-10-12] MEDS ORDERED: SODIUM CHLORIDE FLUSH 10ML SYR IVF ONE (18:30)
[2017-10-12] MEDS ORDERED: POTASSIUM CHLORIDE 20 MEQ TAB.ER.PRT ONE ×2 (19:24→19:37)
[2017-10-12] MEDS ORDERED: POTASSIUM CHLORIDE 20 MEQ TAB.ER.PRT PO ONE (19:30)
[2017-10-12] MEDS ORDERED: POTASSIUM CHLORIDE 20 MEQ PACKET ONE (19:45)
[2017-10-12] MEDS ORDERED: ONDANSETRON ODT 4 MG ONE (19:45)
[2017-10-12] MEDS ORDERED: ONDANSETRON ODT 4 MG PO ONE (20:00)
[2017-10-12] MEDS ORDERED: MORPHINE SULFATE 4 MG/ML, 1ML ONE ×2 (20:16→21:01)
[2017-10-12] MEDS ORDERED: MAGNESIUM SULFATE 1 GM in SODIUM CHLORIDE 0.9% 50 ML IV ONE (20:30)
[2017-10-12] MEDS ORDERED: POTASSIUM CHLORIDE 40 MEQ in SODIUM CHLORIDE 0.9% 1,000 ML IV ONE (20:30)
[2017-10-12] MEDS ORDERED: morphine SULFATE 10 MG/ML, 1ML IVPush ONE (20:30)
[2017-10-12] MEDS ORDERED: NS + 40MEQ KCL 1,000 ML IV ONE (20:45)
[2017-10-12] MEDS ORDERED: MORPHINE SULFATE 4 MG/ML, 1ML IVPush ONE ×2 (21:00)
[2017-10-12] MEDS ORDERED: SODIUM CHLORIDE 0.9% 1,000 ML IV SCH (21:30)
[2017-10-12] MEDS ORDERED: ARTIFICIAL TEARS 15 DROP/ML BOTTLE EACHEYE PRN (21:30)
[2017-10-12] MEDS ORDERED: ACETAMINOPHEN 325 MG TABLET PO PRN (21:30)
[2017-10-12] MEDS ORDERED: POTASSIUM CHLORIDE 20 MEQ PACKET PO SCH (21:30)
[2017-10-12] MEDS ORDERED: PROMETHAZINE 25MG TABLET PO PRN (21:30)
[2017-10-12] MEDS: TEMPLATE NON-FORMULARY MED. (Cyclosporine (Restasis) 1 DROP) EACHEYE SCH (21:30)
[2017-10-12] MEDS ORDERED: POLYETHYLENE GLYCOL 17 GM PACKET PO PRN (21:30)
[2017-10-12] MEDS ORDERED: BISACODYL 10 MG SUPP PR PRN (21:30)
[2017-10-12] MEDS ORDERED: ONDANSETRON 2MG/ML, 2ML IVPush PRN (21:30)
[2017-10-12] MEDS ORDERED: POTASSIUM CHLORIDE 20 MEQ TAB.ER.PRT PO SCH (22:47)
[2017-10-12] MEDS: HEPARIN 5,000 UNITS/ML, 1ML SQ SCH (23:15)
[2017-10-13] MEDS: morphine SULFATE 10 MG/ML, 1ML IVPush PRN ×3 (00:07→06:38)
[2017-10-13 02:00] VITALS: BP 114/77
[2017-10-13 03:22] VITALS: BP 124/82
[2017-10-13 05:50] LABS: BASOPHILS # (AUTO) 0.03 x10^3/uL (0-0.1); BASOPHILS % (AUTO) 0 % (0-1); EOSINOPHILS # (AUTO) 0.03 x10^3/uL (0-0.4); EOSINOPHILS % (AUTO) 0 % (1-7); LYMPHOCYTES # (AUTO) 1.53 x10^3/uL (1-3.4); LYMPHOCYTES % (AUTO) 17 % (22-44); MD NO; MEAN CORPUSCULAR HGB CONC 32.3 g/dL (32.4-35.8); MEAN CORPUSCULAR VOLUME 80.5 fL (80-100); MEAN PLATELET VOLUME 8.3 fL (7.4-10.4); MONOCYTES # (AUTO) 0.63 x10^3/uL (0.2-0.8); MONOCYTES % (AUTO) 7 % (2-9); NEUTROPHILS # (AUTO) 6.87 x10^3/uL (1.8-6.8); NEUTROPHILS % (AUTO) 76 % (42-75); PLATELET COUNT 331 x10^3/uL (130-400); RED BLOOD COUNT 4.12 x10^6/uL (3.82-5.3); RED CELL DISTRIBUTION WIDTH 19.6 % (9.6-15.2)
[2017-10-13 05:54] LABS: CHLORIDE 121 mmol/L (98-107)
[2017-10-13 06:34] LABS: ALANINE AMINOTRANSFERASE 35 U/L (12-78); ALKALINE PHOSPHATASE 82 U/L (45-117); ANION GAP 11 mmol/L (5-15); BILIRUBIN,TOTAL 0.3 mg/dL (0.2-1.0); CALCIUM 7.8 mg/dL (8.5-10.1); CREATININE 0.91 mg/dL (0.55-1.02); TOTAL PROTEIN 7.6 g/dL (6.4-8.2)
[2017-10-13 07:59] VITALS: BP 125/85
[2017-10-13] MEDS ORDERED: POTASSIUM CHLORIDE 20 MEQ PACKET ONE (08:34)
[2017-10-13] MEDS: LEVONORGESTREL ETH ESTRADIOL PO SCH (08:43)
[2017-10-13] MEDS: HEPARIN 5,000 UNITS/ML, 1ML SQ SCH ×2 (08:44→17:37)
[2017-10-13] MEDS: PANTOPROZOLE 40MG TABLET PO SCH (08:45)
[2017-10-13] MEDS: TEMPLATE NON-FORMULARY MED. (Cyclosporine (Restasis) 1 DROP) EACHEYE SCH ×2 (08:51→21:00)
[2017-10-13] MEDS: SODIUM BICARBONATE 8.4% 150 MEQ in DEXTROSE 5% 1,000 ML IV SCH ×2 (08:54→17:35)
[2017-10-13] MEDS: OXYcodone/APAP 5/325MG TABLET PO SCH ×3 (10:18→21:25)
[2017-10-13] MEDS: POTASSIUM CHLORIDE 20 MEQ PACKET PO SCH ×2 (12:03→16:08)
[2017-10-13 13:51] VITALS: BP 107/70
[2017-10-13 14:31] LABS: ANION GAP 7 mmol/L (5-15); CALCIUM 7.5 mg/dL (8.5-10.1); CHLORIDE 119 mmol/L (98-107); CREATININE 0.99 mg/dL (0.55-1.02)
[2017-10-13 19:46] VITALS: BP 134/81
[2017-10-14 02:00] VITALS: BP 110/71
[2017-10-14] MEDS: HEPARIN 5,000 UNITS/ML, 1ML SQ SCH ×3 (03:00→20:26)
[2017-10-14] MEDS: OXYcodone/APAP 5/325MG TABLET PO SCH ×4 (03:03→20:26)
[2017-10-14] MEDS: SODIUM BICARBONATE 8.4% 150 MEQ in DEXTROSE 5% 1,000 ML IV SCH (03:15)
[2017-10-14 06:20] LABS: CHLORIDE 114 mmol/L (98-107)
[2017-10-14 06:30] LABS: BASOPHILS # (AUTO) 0.01 x10^3/uL (0-0.1); BASOPHILS % (AUTO) 0 % (0-1); EOSINOPHILS # (AUTO) 0.09 x10^3/uL (0-0.4); EOSINOPHILS % (AUTO) 1 % (1-7); LYMPHOCYTES # (AUTO) 1.17 x10^3/uL (1-3.4); LYMPHOCYTES % (AUTO) 16 % (22-44); MD NO; MEAN CORPUSCULAR HEMOGLOBIN 25.4 pg (27.0-34.8); MEAN CORPUSCULAR HGB CONC 31.5 g/dL (32.4-35.8); MEAN CORPUSCULAR VOLUME 80.7 fL (80-100); MEAN PLATELET VOLUME 8.1 fL (7.4-10.4); MONOCYTES # (AUTO) 0.41 x10^3/uL (0.2-0.8); MONOCYTES % (AUTO) 6 % (2-9); NEUTROPHILS # (AUTO) 5.56 x10^3/uL (1.8-6.8); NEUTROPHILS % (AUTO) 77 % (42-75); PLATELET COUNT 289 x10^3/uL (130-400); RED BLOOD COUNT 3.88 x10^6/uL (3.82-5.3); RED CELL DISTRIBUTION WIDTH 18.9 % (9.6-15.2)
[2017-10-14 07:47] LABS: ANION GAP 6 mmol/L (5-15); CALCIUM 7.8 mg/dL (8.5-10.1); CREATININE 0.97 mg/dL (0.55-1.02)
[2017-10-14] MEDS: POTASSIUM CHLORIDE IV SCH (08:53)
[2017-10-14] MEDS: [UNRECOGNIZED DRUG - OTHER] IV SCH (08:53)
[2017-10-14] MEDS: POTASSIUM CHLORIDE 20 MEQ PACKET PO SCH ×3 (08:53→17:11)
[2017-10-14] MEDS: SODIUM BICARB IV SCH (08:53)
[2017-10-14] MEDS: PANTOPROZOLE 40MG TABLET PO SCH (08:54)
[2017-10-14] MEDS: TEMPLATE NON-FORMULARY MED. (Cyclosporine (Restasis) 1 DROP) EACHEYE SCH ×2 (09:00→20:26)
[2017-10-14] MEDS: LEVONORGESTREL ETH ESTRADIOL PO SCH (09:00)
[2017-10-14 09:01] VITALS: BP 113/71
[2017-10-14] MEDS ORDERED: POTASSIUM PHOSPHATE 44 MEQ in SODIUM CHLORIDE 0.9% 500 ML IV ONE (12:00)
[2017-10-14 13:23] VITALS: BP 111/71
[2017-10-14 16:18] LABS: CHLORIDE 115 mmol/L (98-107)
[2017-10-14 16:32] LABS: ANION GAP 8 mmol/L (5-15); CALCIUM 7.9 mg/dL (8.5-10.1); CREATININE 0.93 mg/dL (0.55-1.02)
[2017-10-14 19:11] VITALS: BP 121/81
[2017-10-15 00:44] VITALS: BP 104/68
[2017-10-15] MEDS: OXYcodone/APAP 5/325MG TABLET PO SCH (03:13)
[2017-10-15] MEDS: [UNRECOGNIZED DRUG - OTHER] IV SCH (03:13)
[2017-10-15] MEDS: SODIUM BICARB IV SCH (03:13)
[2017-10-15] MEDS: POTASSIUM CHLORIDE IV SCH (03:13)
[2017-10-15] MEDS: HEPARIN 5,000 UNITS/ML, 1ML SQ SCH (03:17)
[2017-10-15 05:26] LABS: BASOPHILS # (AUTO) 0.09 x10^3/uL (0-0.1); BASOPHILS % (AUTO) 1 % (0-1); EOSINOPHILS % (AUTO) 2 % (1-7); LYMPHOCYTES # (AUTO) 1.23 x10^3/uL (1-3.4); LYMPHOCYTES % (AUTO) 18 % (22-44); MD NO; MEAN CORPUSCULAR HEMOGLOBIN 26.3 pg (27.0-34.8); MEAN CORPUSCULAR HGB CONC 32.7 g/dL (32.4-35.8); MEAN CORPUSCULAR VOLUME 80.4 fL (80-100); MONOCYTES # (AUTO) 0.47 x10^3/uL (0.2-0.8); MONOCYTES % (AUTO) 7 % (2-9); NEUTROPHILS # (AUTO) 4.84 x10^3/uL (1.8-6.8); NEUTROPHILS % (AUTO) 72 % (42-75); PLATELET COUNT 299 x10^3/uL (130-400); RED BLOOD COUNT 3.81 x10^6/uL (3.82-5.3); RED CELL DISTRIBUTION WIDTH 19.6 % (9.6-15.2)
[2017-10-15 05:37] LABS: ANION GAP 8 mmol/L (5-15); CALCIUM 8.1 mg/dL (8.5-10.1); CHLORIDE 117 mmol/L (98-107); CREATININE 0.86 mg/dL (0.55-1.02)
[2017-10-15] MEDS ORDERED: POTA20PA25 PO (07:31)
[2017-10-15 08:20] VITALS: BP 110/63
== END 2017-10-15 09:04 | disposition home or self-care (01) | DRG 694 ==
LOC: ED 17:30 → EDIP 21:30 → 4EST 22:46
PROVIDERS: ADMIT Internal Medicine; ATTEND Internal Medicine
DX: N20.0 Calculus of kidney (principal); J84.9 Interstitial pulmonary disease, unspecified; E87.6 Hypokalemia; E66.01 Morbid (severe) obesity due to excess calories; D72.829 Elevated white blood cell count, unspecified; N25.89 Other disorders resulting from impaired renal tubular function; F32.9 Major depressive disorder, single episode, unspecified; M35.00 Sjogren syndrome, unspecified; Z82.49 Family history of ischemic heart disease and other diseases of the circulatory system; Z87.442 Personal history of urinary calculi; Z83.3 Family history of diabetes mellitus; Z99.81 Dependence on supplemental oxygen
CPT/HCPCS: 36415; 74176; 80048; 80053; 81001; 83735; 84100; 84703; 85025; 96365; 96375; 96376; J1644; J3475; J3480; J7070; Q0162; J2270; J7030; J7040; J7120; J7517

== ENCOUNTER → 2018-05-29 | Outpatient (CLI) | payer OTHER ==
[~2018-05-29] MED LIST changes: -CHOL20002 PO; +CHOL200052 PO
[2018-05-29 10:48] LABS: ALANINE AMINOTRANSFERASE 19 U/L (12-78); ALBUMIN 3.1 g/dL (3.4-5.0); ANION GAP 6 mmol/L (5-15); CALCIUM 8.6 mg/dL (8.5-10.1); CHLORIDE 111 mmol/L (98-107); CREATININE 1.15 mg/dL (0.55-1.02)
[2018-05-29 10:50] LABS: ALKALINE PHOSPHATASE 104 U/L (45-117); BILIRUBIN,TOTAL 0.2 mg/dL (0.2-1.0); TOTAL PROTEIN 8.4 g/dL (6.4-8.2)
== END | disposition home or self-care (01) ==
LOC: LAB 10:26
PROVIDERS: ATTEND Registered Nurse
DX: N20.0 Calculus of kidney (principal); M35.00 Sjogren syndrome, unspecified
CPT/HCPCS: 36415; 80053

== ENCOUNTER → 2018-06-26 | Outpatient (CLI) | payer OTHER ==
[2018-06-26 11:19] LABS: ALBUMIN 3.2 g/dL (3.4-5.0); ANION GAP 4 mmol/L (5-15); CALCIUM 8.8 mg/dL (8.5-10.1); CHLORIDE 117 mmol/L (98-107)
[2018-06-26 11:22] LABS: ALANINE AMINOTRANSFERASE 28 U/L (12-78); ALKALINE PHOSPHATASE 97 U/L (45-117); BILIRUBIN,TOTAL 0.3 mg/dL (0.2-1.0); CREATININE 1.04 mg/dL (0.55-1.02); TOTAL PROTEIN 8.4 g/dL (6.4-8.2)
== END | disposition home or self-care (01) ==
LOC: LAB 10:58
PROVIDERS: ATTEND Registered Nurse
DX: E87.5 Hyperkalemia (principal); M35.02 Sjogren syndrome with lung involvement
CPT/HCPCS: 36415; 80053

== ENCOUNTER → 2018-07-06 | Outpatient (CLI) | payer OTHER | END | disposition home or self-care (01) | LOC: CFH 07:23 | PROVIDERS: ATTEND Urology | DX: N20.0 Calculus of kidney (principal) | CPT/HCPCS: 74018 ==

== ENCOUNTER 2018-09-26 09:57 | Inpatient (IN) | payer OTHER ==
[~2018-09-26] VITALS: Ht 165.1 cm; Wt 159.7 kg
--- NOTE | 2018-09-26 10:42 | NUR ---
PT TO ED FOR LEFT FLANK PAIN SIMILAR TO PRIOR KIDNEY STONE PAIN X1 WEEK. CONNECTED TO MONITORS. VSS. EDMD PRESENT FOR ASSESSMENT. AWAITING ORDERS AT THIS TIME.
[2018-09-26] MEDS ORDERED: HYDROmorphone 2 MG/ML, 1ML IVPush PRN (11:00)
[2018-09-26] MEDS ORDERED: ONDANSETRON 2MG/ML, 2ML IVPush ONE (11:00)
[2018-09-26] MEDS ORDERED: SODIUM CHLORIDE FLUSH 10ML SYR IVF ONE (11:00)
[2018-09-26] MEDS ORDERED: HYDROmorphone 2 MG/ML, 1ML ONE (11:08)
[2018-09-26] MEDS ORDERED: ONDANSETRON 2MG/ML, 2ML ONE (11:08)
[2018-09-26 11:21] LABS: BASOPHILS # (AUTO) 0.01 x10^3/uL (0-0.1); BASOPHILS % (AUTO) 0 % (0-1); EOSINOPHILS # (AUTO) 0.05 x10^3/uL (0-0.4); EOSINOPHILS % (AUTO) 1 % (1-7); LYMPHOCYTES # (AUTO) 0.85 x10^3/uL (1-3.4); LYMPHOCYTES % (AUTO) 9 % (22-44); MD NO; MEAN CORPUSCULAR HEMOGLOBIN 24.3 pg (27.0-34.8); MEAN CORPUSCULAR HGB CONC 30.6 g/dL (32.4-35.8); MEAN CORPUSCULAR VOLUME 79.4 fL (80-100); MEAN PLATELET VOLUME 7.6 fL (7.4-10.4); MONOCYTES # (AUTO) 0.55 x10^3/uL (0.2-0.8); MONOCYTES % (AUTO) 6 % (2-9); NEUTROPHILS # (AUTO) 7.91 x10^3/uL (1.8-6.8); NEUTROPHILS % (AUTO) 84 % (42-75); PLATELET COUNT 399 x10^3/uL (130-400); RED BLOOD COUNT 4.48 x10^6/uL (3.82-5.3); RED CELL DISTRIBUTION WIDTH 16.3 % (9.6-15.2)
[2018-09-26 11:26] LABS: ALBUMIN 3.1 g/dL (3.4-5.0); ANION GAP 8 mmol/L (5-15); CALCIUM 8.5 mg/dL (8.5-10.1); CHLORIDE 115 mmol/L (98-107)
[2018-09-26 11:27] LABS: CREATININE 1.81 mg/dL (0.55-1.02)
--- NOTE | 2018-09-26 12:30 | NUR ---
PT RESTING IN ROOM. VSS. UA COLLECTED AND SENT. NO NEEDS EXPRESSED. [facility]. AWAITING CT.
[2018-09-26 12:54] LABS: CULTURE INDICATED? YES; MICROSCOPIC INDICATED
--- NOTE | 2018-09-26 13:14 | NUR ---
PT RESTING IN ROOM. VSS. NO NEEDS EXPRESSED. CALL [facility]. AWAITING CT.
--- NOTE | 2018-09-26 14:58 | NUR ---
PT RESTING IN ROOM. VSS. CATHETER UA COLLECTED AND SENT. NO NEEDS EXPRESSED. AWAITING RESULTS AND DISPO.
[2018-09-26] MEDS ORDERED: SODIUM CHLORIDE FLUSH 10ML SYR IVF PRN (15:00)
[2018-09-26 15:22] LABS: MICROSCOPIC AUTO
[2018-09-26 15:29] LABS: CULTURE INDICATED? YES
--- NOTE | 2018-09-26 15:44 | NUR ---
report to cyndi linder. pt ready for transport.
[2018-09-26] MEDS ORDERED: KETOROLAC 30 MG/1 ML IM PRN (16:00)
[2018-09-26] MEDS ORDERED: ONDANSETRON ODT 4 MG PO PRN (16:00)
[2018-09-26] MEDS ORDERED: TEMPLATE NON-FORMULARY MED. (Carboxymethylcellulose Sodium (Refresh Tears) 1 DROP) EACHEYE PRN (16:00)
[2018-09-26] MEDS ORDERED: PROMETHAZINE 25MG TABLET PO PRN (16:00)
[2018-09-26] MEDS ORDERED: INDOMETHACIN 50 MG CAPSULE PO PRN (16:00)
[2018-09-26] MEDS ORDERED: ONDANSETRON 2MG/ML, 2ML IVPush PRN (16:00)
[2018-09-26] MEDS ORDERED: ACETAMINOPHEN 325 MG TABLET PO PRN (16:00)
[2018-09-26 16:10] VITALS: BP 120/63
[2018-09-26] MEDS: HEPARIN 5,000 UNITS/ML, 1ML SQ SCH (16:57)
[2018-09-26] MEDS: POTASSIUM CHLORIDE 20 MEQ PACKET PO SCH (16:57)
[2018-09-26] MEDS: OXYcodone/APAP 5/325MG TABLET PO SCH ×2 (16:57→20:24)
[2018-09-26] MEDS: SODIUM CHLORIDE 0.9% 1,000 ML IV SCH (16:58)
[2018-09-26 20:20] VITALS: BP 104/75
[2018-09-27] MEDS: HEPARIN 5,000 UNITS/ML, 1ML SQ SCH ×3 (01:04→15:11)
[2018-09-27] MEDS: OXYcodone/APAP 5/325MG TABLET PO SCH ×3 (01:09→21:02)
[2018-09-27 01:19] VITALS: BP 116/77
[2018-09-27 04:59] LABS: ANION GAP 5 mmol/L (5-15); CALCIUM 8.4 mg/dL (8.5-10.1); CHLORIDE 117 mmol/L (98-107); CREATININE 1.58 mg/dL (0.55-1.02)
[2018-09-27 05:11] LABS: BASOPHILS # (AUTO) 0.03 x10^3/uL (0-0.1); BASOPHILS % (AUTO) 0 % (0-1); EOSINOPHILS # (AUTO) 0.07 x10^3/uL (0-0.4); EOSINOPHILS % (AUTO) 1 % (1-7); LYMPHOCYTES # (AUTO) 1.37 x10^3/uL (1-3.4); LYMPHOCYTES % (AUTO) 20 % (22-44); MD NO; MEAN CORPUSCULAR HEMOGLOBIN 25.4 pg (27.0-34.8); MEAN CORPUSCULAR HGB CONC 31.6 g/dL (32.4-35.8); MEAN CORPUSCULAR VOLUME 80.6 fL (80-100); MEAN PLATELET VOLUME 7.9 fL (7.4-10.4); MONOCYTES # (AUTO) 0.56 x10^3/uL (0.2-0.8); MONOCYTES % (AUTO) 8 % (2-9); NEUTROPHILS % (AUTO) 71 % (42-75); PLATELET COUNT 346 x10^3/uL (130-400); RED BLOOD COUNT 4.04 x10^6/uL (3.82-5.3); RED CELL DISTRIBUTION WIDTH 16.1 % (9.6-15.2)
[2018-09-27] MEDS: SODIUM CHLORIDE 0.9% 1,000 ML IV SCH ×2 (06:25→20:13)
[2018-09-27] MEDS: PANTOPROZOLE 40MG TABLET PO SCH (06:25)
[2018-09-27] MEDS: POTASSIUM CHLORIDE 20 MEQ PACKET PO SCH ×3 (08:12→17:00)
[2018-09-27] MEDS: LACTOBACILLUS CHEW TABLET PO SCH ×3 (08:13→21:01)
[2018-09-27] MEDS: LEVONORGESTREL ETH ESTRADIOL PO SCH (08:14)
[2018-09-27 08:16] VITALS: BP 125/83
[2018-09-27 11:48] LABS: INTERNATIONAL NORMALIZED RATIO 0.92 (0.93-1.1); PROTHROMBIN TIME 9.7 Seconds (9.6-11.5)
[2018-09-27] MEDS: morphine SULFATE 10 MG/ML, 1ML IVPush PRN ×2 (13:21→14:09)
[2018-09-27 13:56] VITALS: BP 110/70
[2018-09-27] MEDS ORDERED: FENTANYL PF 250 MCG/5ML ONE (15:07)
[2018-09-27] MEDS ORDERED: SCOPOLAMINE PATCH, 1.5MG PATCH.TD72 TD ONE (15:16)
[2018-09-27] MEDS ORDERED: LIDOCAINE 4%, 4 ML SYR/CANN TP ONE (15:18)
[2018-09-27] MEDS ORDERED: CIPROFLOXACIN/PMX 400MG/200ML 200 ML ONE (15:40)
[2018-09-27] MEDS ORDERED: SUCCINYLCHOLINE 20 MG/ML, 10ML ONE (15:58)
[2018-09-27] MEDS ORDERED: DEXAMETHASONE 4 MG/ML, 1ML ONE (15:58)
[2018-09-27] MEDS ORDERED: ONDANSETRON 2MG/ML, 2ML ONE (15:58)
[2018-09-27] MEDS ORDERED: GLYCOPYRROLATE 0.2MG/1ML, 5ML ONE (15:58)
[2018-09-27] MEDS ORDERED: NEOSTIGMINE 1 MG/ML, 10ML ONE (15:58)
[2018-09-27] MEDS ORDERED: ROCURONIUM 10MG/ML,5ML ONE (15:58)
[2018-09-27] MEDS ORDERED: PROPOFOL 10 MG/ML, 20ML ONE (15:58)
[2018-09-27] MEDS ORDERED: CEFAZOLIN 1,000 MG ONE (15:58)
[2018-09-27] MEDS ORDERED: ONDANSETRON ODT 8 MG PO PRN (16:00)
[2018-09-27] MEDS ORDERED: ACETAMINOPHEN 325 MG TABLET PO PRN (16:00)
[2018-09-27] MEDS ORDERED: ONDANSETRON 2MG/ML, 2ML IV PRN (16:00)
[2018-09-27] MEDS ORDERED: OXYcodone 5 MG/5 ML ORAL.SOL UDC PO PRN (16:00)
[2018-09-27] MEDS ORDERED: PROCHLORPERAZINE 5 MG/ML, 2ML IV PRN (16:00)
[2018-09-27] MEDS ORDERED: PROMETHAZINE 25 MG/ML, 1ML IV PRN (16:00)
[2018-09-27] MEDS ORDERED: HYDROmorphone 2 MG/ML, 1ML IVPush PRN (16:00)
[2018-09-27] MEDS ORDERED: FENTANYL PF 100 MCG/2ML ONE (16:32)
[2018-09-27] MEDS ORDERED: OXYcodone 5 MG/5 ML ORAL.SOL UDC ONE (16:33)
[2018-09-27] MEDS: FENTANYL PF 100 MCG/2ML IV PRN ×2 (16:35→16:40)
[2018-09-27] MEDS ORDERED: KETOROLAC 30 MG/1 ML ONE (16:51)
[2018-09-27] MEDS ORDERED: MEPERIDINE/PF 25MG/ML,1ML ONE (17:04)
[2018-09-27] MEDS ORDERED: KETOROLAC 30 MG/1 ML IV PRN (17:30)
[2018-09-27] MEDS ORDERED: MEPERIDINE/PF 25MG/0.5ML IVPush PRN (17:30)
[2018-09-27 18:02] VITALS: BP 112/76
[2018-09-27 20:16] VITALS: BP 124/75
[2018-09-28] MEDS: HEPARIN 5,000 UNITS/ML, 1ML SQ SCH ×2 (00:05→09:08)
[2018-09-28 00:23] VITALS: BP 105/56
[2018-09-28] MEDS: morphine SULFATE 10 MG/ML, 1ML IVPush PRN (03:15)
[2018-09-28 04:02] VITALS: BP 108/63
[2018-09-28 04:46] LABS: BASOPHILS # (AUTO) 0.02 x10^3/uL (0-0.1); BASOPHILS % (AUTO) 0 % (0-1); EOSINOPHILS % (AUTO) 0 % (1-7); LYMPHOCYTES # (AUTO) 0.73 x10^3/uL (1-3.4); LYMPHOCYTES % (AUTO) 11 % (22-44); MD NO; MEAN CORPUSCULAR HEMOGLOBIN 25.3 pg (27.0-34.8); MEAN CORPUSCULAR HGB CONC 31.2 g/dL (32.4-35.8); MEAN CORPUSCULAR VOLUME 81.1 fL (80-100); MEAN PLATELET VOLUME 7.8 fL (7.4-10.4); MONOCYTES # (AUTO) 0.14 x10^3/uL (0.2-0.8); MONOCYTES % (AUTO) 2 % (2-9); NEUTROPHILS # (AUTO) 5.95 x10^3/uL (1.8-6.8); NEUTROPHILS % (AUTO) 87 % (42-75); PLATELET COUNT 397 x10^3/uL (130-400); RED CELL DISTRIBUTION WIDTH 16.4 % (9.6-15.2)
[2018-09-28 04:57] LABS: ANION GAP 6 mmol/L (5-15); CALCIUM 8.3 mg/dL (8.5-10.1); CHLORIDE 116 mmol/L (98-107); CREATININE 1.37 mg/dL (0.55-1.02)
[2018-09-28] MEDS: PANTOPROZOLE 40MG TABLET PO SCH (05:51)
[2018-09-28 08:38] VITALS: BP 116/73
[2018-09-28] MEDS: LEVONORGESTREL ETH ESTRADIOL PO SCH (09:00)
[2018-09-28] MEDS: POTASSIUM CHLORIDE 20 MEQ PACKET PO SCH ×2 (09:08→12:00)
[2018-09-28] MEDS: LACTOBACILLUS CHEW TABLET PO SCH (09:09)
[2018-09-28] MEDS: OXYcodone/APAP 5/325MG TABLET PO SCH (09:09)
[2018-09-28] MEDS: SODIUM CHLORIDE 0.9% 1,000 ML IV SCH (09:10)
[2018-09-28] MEDS ORDERED: CEPH-368 PO ×2 (10:38)
[2018-09-28] MEDS ORDERED: ACID1TAB7 PO (10:38)
[2018-09-28] MEDS ORDERED: ACET325T14 PO (10:38)
[2018-09-28] MEDS ORDERED: INDO50CA5 PO (10:38)
[2018-09-28 11:32] VITALS: BP 11/63
[2018-09-28] MEDS ORDERED: TAMS-11 PO (12:50)
[2018-09-28] MEDS ORDERED: CEFD300C37 PO (12:51)
== END 2018-09-28 13:15 | disposition home or self-care (01) | DRG 660 ==
LOC: ED 12:58 → EDIP 15:00 → 4NOR 15:51 → DCLOUNGE 09-28 13:01
PROVIDERS: ADMIT Internal Medicine; ATTEND Internal Medicine
PROC: 0T9B70Z Drainage of Bladder with Drainage Device, Via Natural or Artificial Opening (ICD-10-PCS; 2018-09-26)
PROC: 0T778DZ Dilation of Left Ureter with Intraluminal Device, Via Natural or Artificial Opening Endoscopic (ICD-10-PCS; principal; 2018-09-27 16:15)
DX: N13.6 Pyonephrosis (principal); Z68.43 Body mass index [BMI] 50.0-59.9, adult; N17.9 Acute kidney failure, unspecified; E66.01 Morbid (severe) obesity due to excess calories; G47.33 Obstructive sleep apnea (adult) (pediatric); M35.00 Sjogren syndrome, unspecified; N18.2 Chronic kidney disease, stage 2 (mild)
CPT/HCPCS: 36415; 74018; 76000; 99285; Q0169; 74176; 80048; 81001; 81025; 82040; 85025; 85610; 87086; 96374; 96375; G0378; J0690; J0744; J1100; J1170; J1644; J1885; J2175; J2405; J2704; J2710; J3010; C1758; C1769; C2617; J0330; J2270; J7030; J7517

== ENCOUNTER 2018-10-05 14:12 | Day surgery (SDC) | payer OTHER ==
[~2018-10-05] VITALS: Ht 165.1 cm; Wt 153.5 kg
[~2018-10-05 14:12] MED LIST changes: +ACET325T14 PO; +ACID1TAB7 PO; +CEPH-368 PO; +INDO50CA5 PO
[2018-10-05 14:20] VITALS: BP 132/82
[2018-10-05] MEDS ORDERED: LACTATED RINGERS 1,000 ML IV SCH (14:24)
[2018-10-05] MEDS ORDERED: PLEASE ENTER HEIGHT AND WEIGHT MC SCH (14:30)
[2018-10-05 15:05] LABS: HCG UR SG 1.015 (1.003-1.030)
[2018-10-05] MEDS ORDERED: FENTANYL PF 100 MCG/2ML ONE ×2 (17:44→19:07)
[2018-10-05] MEDS ORDERED: MIDAZOLAM 1 MG/ML, 2ML ONE (17:44)
[2018-10-05] MEDS ORDERED: SCOPOLAMINE PATCH, 1.5MG PATCH.TD72 TD ONE (17:47)
[2018-10-05] MEDS ORDERED: CIPROFLOXACIN/PMX 400MG/200ML 200 ML IVPB ONE (17:47)
[2018-10-05] MEDS ORDERED: FENTANYL PF 250 MCG/5ML ONE (18:13)
[2018-10-05] MEDS ORDERED: MEPERIDINE/PF 25MG/0.5ML IVPush PRN (18:30)
[2018-10-05] MEDS ORDERED: OXYcodone 5 MG/5 ML ORAL.SOL UDC PO PRN (18:30)
[2018-10-05] MEDS ORDERED: PROMETHAZINE 25 MG/ML, 1ML IV PRN (18:30)
[2018-10-05] MEDS ORDERED: ALBUTEROL SULFATE 2.5 MG/3 ML NPPB PRN (18:30)
[2018-10-05] MEDS ORDERED: KETOROLAC 30 MG/1 ML IV PRN (18:30)
[2018-10-05] MEDS ORDERED: ACETAMINOPHEN 325 MG TABLET PO PRN (18:30)
[2018-10-05] MEDS ORDERED: DIAZEPAM 5 MG/ML, 10ML VIAL IVPush PRN (18:30)
[2018-10-05] MEDS ORDERED: hydrALAzine 20 MG/ML, 1ML IV PRN (18:30)
[2018-10-05] MEDS ORDERED: LABETALOL 5MG/ML, 20ML IV PRN (18:30)
[2018-10-05] MEDS ORDERED: NEOSTIGMINE 1 MG/ML, 10ML ONE (18:32)
[2018-10-05] MEDS ORDERED: ROCURONIUM 10MG/ML,5ML ONE (18:32)
[2018-10-05] MEDS ORDERED: SUCCINYLCHOLINE 20 MG/ML, 10ML ONE (18:32)
[2018-10-05] MEDS ORDERED: PROPOFOL 10 MG/ML, 20ML ONE (18:32)
[2018-10-05] MEDS ORDERED: ONDANSETRON 2MG/ML, 2ML ONE (18:32)
[2018-10-05] MEDS ORDERED: DEXAMETHASONE 4 MG/ML, 1ML ONE (18:32)
[2018-10-05] MEDS ORDERED: CEFAZOLIN 1,000 MG ONE (18:32)
[2018-10-05] MEDS ORDERED: GLYCOPYRROLATE 0.2MG/1ML, 5ML ONE (18:32)
[2018-10-05] MEDS ORDERED: OXYcodone/APAP 5/325MG TABLET PO PRN (19:00)
[2018-10-05] MEDS ORDERED: ONDANSETRON 2MG/ML, 2ML IV PRN (19:00)
[2018-10-05] MEDS ORDERED: OXYcodone 5 MG/5 ML ORAL.SOL UDC ONE (19:04)
[2018-10-05] MEDS ORDERED: KETOROLAC 30 MG/1 ML ONE (19:04)
[2018-10-05] MEDS ORDERED: HYDROmorphone 2 MG/ML, 1ML ONE (19:07)
[2018-10-05] MEDS ORDERED: ACETAMINOPHEN 650 MG/20.3 ML UDC ONE (19:07)
[2018-10-05] MEDS: FENTANYL PF 100 MCG/2ML IV PRN ×2 (19:10→19:26)
[2018-10-05] MEDS: HYDROmorphone 2 MG/ML, 1ML IVPush PRN ×3 (19:12→19:25)
== END 2018-10-05 21:00 | disposition home or self-care (01) ==
LOC: OR 14:12 → 4NOR 19:52 → OR 21:00
PROVIDERS: ATTEND Urology
DX: N20.1 Calculus of ureter (principal); N18.2 Chronic kidney disease, stage 2 (mild); J84.9 Interstitial pulmonary disease, unspecified; M35.00 Sjogren syndrome, unspecified; E66.01 Morbid (severe) obesity due to excess calories; Z79.899 Other long term (current) drug therapy; Z87.442 Personal history of urinary calculi
CPT/HCPCS: 52353; 81025; 82360; 88300; J0330; J0690; J0744; J1100; J1170; J2250; J2405; J2704; J2710; J3010; G0378

== ENCOUNTER 2018-10-07 18:17 | Emergency (ER) | payer OTHER ==
[~2018-10-07] VITALS: Ht 165.1 cm; Wt 155.0 kg
--- NOTE | 2018-10-07 18:34 | NUR ---
Pt presents to ED s/p lithotripsy two days ago on left kidney. Pt has past history of lithotripsy 8 times. Pt states, "the pain is worse now and is going to the front. It makes me nauseasted." NADN. No other needs expressed at this time. Call light within reach. Bed rail up for safety measures.
--- NOTE | 2018-10-07 18:42 | NUR ---
Pt transported on gurney to imaging. NADN. Both bedside rails up for safety measures.
--- NOTE | 2018-10-07 18:55 | NUR ---
Provided report to MARYURI Jason. All questions answered. MARYURI Jason assuming care or pt. LINDSEY.
[2018-10-07 19:14] LABS: MICROSCOPIC AUTO
[2018-10-07 19:15] LABS: CULTURE INDICATED? YES
[2018-10-07 19:38] LABS: BASOPHILS # (AUTO) 0.01 x10^3/uL (0-0.1); BASOPHILS % (AUTO) 0 % (0-1); EOSINOPHILS # (AUTO) 0.05 x10^3/uL (0-0.4); EOSINOPHILS % (AUTO) 1 % (1-7); LYMPHOCYTES # (AUTO) 1.04 x10^3/uL (1-3.4); LYMPHOCYTES % (AUTO) 12 % (22-44); MD NO; MEAN CORPUSCULAR HEMOGLOBIN 24.9 pg (27.0-34.8); MEAN CORPUSCULAR VOLUME 80.3 fL (80-100); MEAN PLATELET VOLUME 7.8 fL (7.4-10.4); MONOCYTES # (AUTO) 0.29 x10^3/uL (0.2-0.8); MONOCYTES % (AUTO) 3 % (2-9); NEUTROPHILS # (AUTO) 7.55 x10^3/uL (1.8-6.8); NEUTROPHILS % (AUTO) 84 % (42-75); PLATELET COUNT 347 x10^3/uL (130-400); RED BLOOD COUNT 4.37 x10^6/uL (3.82-5.3); RED CELL DISTRIBUTION WIDTH 16.1 % (9.6-15.2)
--- NOTE | 2018-10-07 19:40 | NUR ---
manager labor delivery at bedside for blood draw. CT scan resulted.
[2018-10-07 19:48] LABS: ALBUMIN 3.1 g/dL (3.4-5.0); ANION GAP 7 mmol/L (5-15); CALCIUM 8.3 mg/dL (8.5-10.1); CHLORIDE 112 mmol/L (98-107); CREATININE 1.53 mg/dL (0.55-1.02)
[2018-10-07] MEDS ORDERED: KETOROLAC 30 MG/1 ML IM ONE (20:30)
[2018-10-07] MEDS ORDERED: KETOROLAC 30 MG/1 ML ONE (20:30)
--- NOTE | 2018-10-07 20:50 | NUR ---
patient declined toradol shot due to kidney problem. aware.
[2018-10-07 20:59] VITALS: BP 108/68
--- NOTE | 2018-10-07 20:59 | NUR ---
re-evaluation done. patient discharged with instruction. verbalized understanding.
== END 2018-10-07 21:01 | disposition home or self-care (01) ==
LOC: ED 19:05
DX: R10.819 Abdominal tenderness, unspecified site (principal); N18.2 Chronic kidney disease, stage 2 (mild); E66.01 Morbid (severe) obesity due to excess calories; Z68.43 Body mass index [BMI] 50.0-59.9, adult
CPT/HCPCS: 36415; 74176; 80048; 81001; 82040; 85025; 87086; 99284

== ENCOUNTER 2019-02-27 09:51 | Outpatient (CLI) | payer OTHER ==
[~2019-02-27 09:51] MED LIST changes: +INDO50CA15 PO; -INDO50CA5 PO; -PROM12.55 PO; +PROM12.57 PO
[2019-02-27] MEDS ORDERED: POTA20PA25 PO (10:53)
[2019-02-27] MEDS ORDERED: CHOL500050 PO (10:53)
[2019-02-27] MEDS ORDERED: POTA5TAB2 PO ×2 (10:53)
[2019-02-27 11:04] LABS: MICROSCOPIC AUTO
== END 2019-02-27 23:59 | disposition home or self-care (01) ==
LOC: STAR 09:51
PROVIDERS: ATTEND Urology
DX: Z01.818 Encounter for other preprocedural examination (principal); N20.0 Calculus of kidney
CPT/HCPCS: 81001; 87086

== ENCOUNTER → 2019-03-21 | Outpatient (CLI) | payer OTHER ==
[~2019-03-21] MED LIST changes: +CHOL500050 PO; +OXYB5TAB10 PO; -OXYB5TAB7 PO; +POTA5TAB2 PO
[2019-03-21 14:27] LABS: ALANINE AMINOTRANSFERASE 24 U/L (12-78); ALBUMIN 3.1 g/dL (3.4-5.0); ANION GAP 6 mmol/L (5-15); CALCIUM 8.7 mg/dL (8.5-10.1); CHLORIDE 110 mmol/L (98-107); CREATININE 1.08 mg/dL (0.55-1.02)
[2019-03-21 14:29] LABS: ALKALINE PHOSPHATASE 91 U/L (45-117); BILIRUBIN,TOTAL 0.2 mg/dL (0.2-1.0); TOTAL PROTEIN 8.6 g/dL (6.4-8.2)
== END | disposition home or self-care (01) ==
LOC: LAB 13:51
PROVIDERS: ATTEND Registered Nurse
DX: M35.02 Sjogren syndrome with lung involvement (principal); N13.30 Unspecified hydronephrosis; N20.1 Calculus of ureter; Z82.5 Family history of asthma and other chronic lower respiratory diseases; Z80.0 Family history of malignant neoplasm of digestive organs
CPT/HCPCS: 36415; 80053; 84100

== ENCOUNTER → 2019-05-31 | Outpatient (CLI) | payer OTHER | END | disposition home or self-care (01) | LOC: CFH 07:42 | PROVIDERS: ATTEND Urology | DX: M47.814 Spondylosis without myelopathy or radiculopathy, thoracic region (principal); N20.0 Calculus of kidney; M54.5 Low back pain; M54.2 Cervicalgia | CPT/HCPCS: 72040; 72072; 72100; 74018 ==

== ENCOUNTER → 2019-11-28 | Outpatient (CLI) | payer OTHER | END | disposition home or self-care (01) | LOC: CFH 08:37 | PROVIDERS: ATTEND Family Medicine | DX: N20.0 Calculus of kidney (principal); J84.9 Interstitial pulmonary disease, unspecified | CPT/HCPCS: 71250; 74176 ==